=== PATIENT | male | born 1980 | race Caucasian/White ===

== ENCOUNTER 2022-03-01 14:39 | Outpatient (RCR) | payer BC, SELFPAY | END 2022-03-01 14:45 | disposition home or self-care (01) | LOC: PT 14:39 | PROVIDERS: PCP Family Medicine; Visit Provider Nurse Practitioner Family | DX: M54.41 Lumbago with sciatica, right side (principal) | CPT/HCPCS: 97163 ==

== ENCOUNTER 2022-04-19 05:42 | Day surgery (SDC) | payer BC, SELFPAY ==
[2022-04-19] VITALS (7 sets, daily range): BP systolic 109–116; BP diastolic 60–75; PULSE 45–65; RESP 18–20; TEMP 36.5–36.7; O2SAT 98–100; BMI 22.8
[2022-04-19 06:32] LABS: Coronavirus 19, PCR Not Detected (NotDetected); Influenza A, PCR Not Detected (NotDetected); Influenza B, PCR Not Detected (NotDetected)
== END 2022-04-19 07:52 | disposition home or self-care (01) ==
LOC: OR 05:44
PROVIDERS: PCP Family Medicine; Visit Provider Ophthalmology
PROC: (CPT 66984; principal; 2022-04-19 07:30)
DX: H26.9 Unspecified cataract (principal)
CPT/HCPCS: 66984; C9803; U0003; U0005; V2632